=== PATIENT | male | born 1965 | race Caucasian/White ===

== ENCOUNTER 2024-02-13 08:40 | Emergency (ER) | payer OTHER ==
[2024-02-13 08:51] VITALS: PULSE 91
[2024-02-13 09:22] VITALS: BP 142/81
[2024-02-13] MEDS: Ketorolac 30 MG/ML SDV IM ONE (09:33)
== END 2024-02-13 09:43 | disposition home or self-care (01) ==
LOC: KA.ED 08:40
DX: S40.011A Contusion of right shoulder, initial encounter (principal); Z79.899 Other long term (current) drug therapy; W22.8XXA Striking against or struck by other objects, initial encounter; Y92.59 Other trade areas as the place of occurrence of the external cause
CPT/HCPCS: 73030-RT; 73060-RT; 96372; 99284; J1885

== ENCOUNTER 2024-04-24 08:40 | Emergency (ER) | payer SELFPAY ==
[2024-04-24] MEDS: Acetaminophen/oxyCODONE 325-5 MG Tab PO ONE (09:37)
[2024-04-24] MEDS: Midazolam 1 MG/ML 2 ML SDV IVPUSH ONE (10:32)
[2024-04-24] MEDS: Ketamine 200 MG/20 ML MDV IVPUSH ONE (10:33)
[2024-04-24 12:02] VITALS: BP 135/80; PULSE 85
== END 2024-04-24 10:37 | disposition home or self-care (01) ==
LOC: MERGE 08:40 → KA.ED 08:40
DX: S52.615A Nondisplaced fracture of left ulna styloid process, initial encounter for closed fracture (principal); S52.502A Unspecified fracture of the lower end of left radius, initial encounter for closed fracture; W00.0XXA Fall on same level due to ice and snow, initial encounter
CPT/HCPCS: 25605; 73110-LT; 73200-LT; 99152; 99283-25; A9270-GY; J2250; J3490